=== PATIENT | male | born 1960 | race Asian ===

== ENCOUNTER → 2024-02-17 07:10 | Outpatient (REF) | payer OTHER, SELFPAY | LOC: HWRAD 07:10 | PROVIDERS: ATTENDING PHYSICIAN Specialist; FAMILY PHYSICIAN Family Medicine | DX: K82.4 Cholesterolosis of gallbladder (principal) | CPT/HCPCS: 76700 ==

== ENCOUNTER → 2024-02-18 06:17 | Day surgery (SDC) | payer OTHER, SELFPAY | LOC: GI 06:17 | PROVIDERS: ATTENDING PHYSICIAN Specialist | DX: K31.7 Polyp of stomach and duodenum (principal); R12 Heartburn; K29.50 Unspecified chronic gastritis without bleeding | CPT/HCPCS: 43239; 91035; 88305; 88342 ==

== ENCOUNTER → 2024-09-28 08:41 | Outpatient (REF) | payer OTHER, SELFPAY | LOC: REG 08:41 | PROVIDERS: ATTENDING PHYSICIAN Family Medicine | DX: M41.9 Scoliosis, unspecified (principal) | CPT/HCPCS: 72082 ==